=== PATIENT | female | born 1985 | race Two or more races ===

== ENCOUNTER 2016-11-06 11:46 | Emergency (ER) | payer MEDICAID, OTHER ==
[~2016-11-06] VITALS: Ht 160 cm; Wt 68.0 kg
--- NOTE | 2016-11-06 11:57 | Emergency Room Report ---
History of Present Illness General Chief Complaint: To Be Triaged Source: Patient Present Illness HPI The patient was bitten by two spiders yesterday. She's had some strange feeling in her hands, swelling and redness. Her last tetanus was 6 years ago. Pain reported to RN as 8/10, in area, somewhat spreading towards forearm, burning and itching. No fevers, chills, NVD, dysuria. R handed Allergies: Coded Allergies: No Known Allergies (Unverified , 09/22/12) Patient History Past Medical History: see triage record Social History: Reports: smoking Social History Narrative not employed Reviewed Nursing Documentation: PMH: Agreed, PSxH: Agreed Review of Systems All Other Systems: negative except mentioned in HPI Physical Exam Vital Signs Date Time Temp Pulse Resp B/P Pulse Ox O2 Delivery O2 Flow Rate FiO2 11/06/16 11:56 98.2 91 18 121/81 98 Room Air General Appearance: well appearing, no apparent distress, GCS 15 Head: normocephalic, atraumatic Eyes: bilateral eye PERRL, bilateral eye normal inspection ENT: hearing grossly normal, normal voice, moist mucus membranes Neck: full range of motion, supple Respiratory: no respiratory distress, speaking full sentences Cardiovascular #1: regular rate, rhythm Cardiovascular #2: 2+ radial (R), 2+ radial (L) Gastrointestinal: normal inspection Musculoskeletal: digits/nails normal, gait/station normal, normal range of motion Neurologic: alert, oriented x3, normal gait, grossly normal Psychiatric: mood/affect normal Skin: other - punctate lesions (2) lateral hand and wrist with erythema and some swelling of hand Medical Decision Making Diagnostic Impression: Primary Impression: Spider bite wound Qualified Codes: T63.301A - Toxic effect of unspecified spider venom, accidental (unintentional), initial encounter ER Course Patient with spider bites. Ddx: local reaction, cellulitis, abscess. Exam excludes abscess. Needs local care and coverage with antibiotics. Antibiotics and local care begun. Sling applied by tech. Position good. Neurovasc normal as checked by me. Patient stable for outpatient observation and treatment. Last Vital Signs Date Time Temp Pulse Resp B/P Pulse Ox O2 Delivery O2 Flow Rate FiO2 11/06/16 12:45 98.2 18 121/81 98 Room Air 11/06/16 12:45 94 Status: improved Disposition: HOME, SELF-CARE Condition: Improved Scripts Diphenhydramine HCl (Benadryl) 25 Mg Capsule 25 MG PO Q6HR, #10 CAP Prov: Jamey Valenzuela M.D. 11/06/16 Hydrocortisone 1% cream (Hydrocortisone 1% cream) Y Cr 1 APPLIC TOPIC BID, #10 GM Prov: Jamey Valenzuela M.D. 11/06/16 Bacitracin (Bacitracin) 28.4 Gm Oint...g. 1 APPLIC TOPIC BID, #14 GM Prov: Jamey Valenzuela M.D. 11/06/16 Trimethoprim/Sulfamethoxazole 160/800* (BACTRIM DS TABLET*) 1 Each Tablet 1 TAB ORAL Q12H, #14 TAB 0 Refills Prov: Jamey Valenzuela M.D. 11/06/16 Jamey Valenzuela M.D. November 06, 2016 11:57
[2016-11-06] MEDS ORDERED: Bactrim DS (160mg/800mg) tab ORAL ONE (12:00)
[2016-11-06] MEDS ORDERED: Bacitracin Oint UD TOPIC ONE (12:00)
[2016-11-06] MEDS ORDERED: HYDROCORTISON28.4 G5 TOPIC (12:34)
[2016-11-06] MEDS ORDERED: BENADRYL25 M3 PO (12:34)
[2016-11-06] MEDS ORDERED: BACTRIM DS TAB1 EAC1 ORAL (12:34)
[2016-11-06] MEDS ORDERED: BACITRACIN15 GM TOPIC (12:34)
[2016-11-06 12:45] VITALS: BP 126/72
== END 2016-11-06 12:45 | disposition home or self-care (01) ==
LOC: EMR 12:34
DX: T63.301A Toxic effect of unspecified spider venom, accidental (unintentional), initial encounter (principal); W57.XXXA Bitten or stung by nonvenomous insect and other nonvenomous arthropods, initial encounter; Y93.9 Activity, unspecified; Y92.9 Unspecified place or not applicable; F17.200 Nicotine dependence, unspecified, uncomplicated
CPT/HCPCS: 29240; 99284

== ENCOUNTER 2018-05-04 22:12 | Emergency (ER) | payer SELFPAY ==
[~2018-05-04] VITALS: Ht 160 cm; Wt 72.6 kg
[~2018-05-04 22:12] MED LIST: BACITRACIN15 GM TOPIC; BACTRIM DS TAB1 EAC1 ORAL; BENADRYL25 M3 PO; HYDROCORTISON28.4 G5 TOPIC
[2018-05-04 22:24] VITALS: BP 126/79
[2018-05-04 22:48] VITALS: BP 120/65
--- NOTE | 2018-05-05 00:26 | Emergency Room Report ---
History of Present Illness General Chief Complaint: Animal Bite Source: Patient Present Illness HPI Patient presents with reports of possible spider bite to the right cheek area Patient reports that the area has been there for the past several days She has squeezed the area and noticed some discharge She also has some discomfort to the area Denies any fevers or chills denies any posterior neck pain however on the lateral aspect on the right side she did have some discomfort Denies any abdominal pain denies any vomiting or diarrhea Allergies: Coded Allergies: No Known Allergies (Unverified , 09/22/12) Patient History Past Medical History: see triage record Pertinent Family History: none Last Menstrual Period: 2 weeks ago Now: No Reviewed Nursing Documentation: PMH: Agreed; PSxH: Agreed Nursing Documentation-PMH Past Medical History: No Stated History Review of Systems All Other Systems: negative except mentioned in HPI Physical Exam Vital Signs Date Time Temp Pulse Resp B/P (MAP) Pulse Ox O2 Delivery O2 Flow Rate FiO2 05/04/18 22:22 98.4 134 16 126/79 95 Room Air Sp02 EP Interpretation: reviewed, normal General Appearance: well appearing, no apparent distress Head: normocephalic, atraumatic Eyes: bilateral eye PERRL, bilateral eye EOMI ENT: hearing grossly normal, normal pharynx, TMs + canals normal, uvula midline Neck: full range of motion, supple, no meningismus, no bony tend Respiratory: lungs clear, normal breath sounds, no rhonchi, no respiratory distress, no retraction, no accessory muscle use Cardiovascular #1: normal peripheral pulses, regular rate, rhythm, no edema, no gallop, no JVD, no murmur Gastrointestinal: normal bowel sounds, non tender, soft, no mass, no organomegaly, non-distended, no guarding, no hernia, no pulsatile mass, no rebound Musculoskeletal: normal inspection Neurologic: oriented x3, responsive, rotary driller prospecting III-XII nml as tested, motor strength/ tone normal, sensory intact Psychiatric: mood/affect normal Skin: other - There was a small erythematous lesion on the right angle of the mandible, there is a central scab formation no obvious fluctuance, Lymphatic: normal inspection, no adenopathy Medical Decision Making Diagnostic Impression: Primary Impression: insect bite Additional Impression: cellulitis ER Course Patient has area of likely insect bite There is some mild erythema with likely cellulitis There are no palpable abscess and the patient stable for antibiotic coverage patient reports that she has antibiotics from recent visit And will follow closely Last Vital Signs Date Time Temp Pulse Resp B/P (MAP) Pulse Ox O2 Delivery O2 Flow Rate FiO2 05/04/18 22:48 98.1 65 16 120/65 95 Room Air Status: unchanged Disposition: HOME, SELF-CARE Condition: Stable Referrals: NOT CHOSEN IPA/MD,REFERRING (PCP) Patient Instructions: Cellulitis, [id number], Insect Bite, [id number] Additional Instructions: Patient is provided with the discharge instructions notified to follow up with primary doctor in the next 2-3 days otherwise return to the er with any worsening symptoms. Please note that this report is being documented using DRAGON technology. This can lead to erroneous entry secondary to incorrect interpretation by the dictating instrument. Regla Andres DO May 05, 2018 00:26
== END 2018-05-04 23:00 | disposition home or self-care (01) ==
LOC: EMR 22:46
DX: S00.86XA Insect bite (nonvenomous) of other part of head, initial encounter (principal); L03.211 Cellulitis of face; W57.XXXA Bitten or stung by nonvenomous insect and other nonvenomous arthropods, initial encounter; Y92.9 Unspecified place or not applicable
CPT/HCPCS: 99282